=== PATIENT | female | born 1950 | race Caucasian/White ===

== ENCOUNTER 2021-02-13 21:15 | Observation (INO) | payer MEDICARE ==
[2021-02-13] MEDS ORDERED: Nitroglycerin 0.4 MG TAB (25 Tab Bottle) SL PRN (23:13)
[2021-02-13] MEDS ORDERED: Nitroglycerin 2% Ointment 1 INCH/1 GM Packet TOP SCH (23:30)
[2021-02-13] MEDS ORDERED: Amlodipine 5 MG TAB PO SCH (23:30)
[2021-02-13 23:51] LABS: #Eosinphils 0.2 10x3/uL (0.0-0.5); #Monocytes 0.5 10x3/uL (0.0-1.1); #Neutrophils 2.5 10x3/uL (1.5-8.4); %Basophils 0.5 % (0.0-2.0); %Lymphocytes 50.1 % (18.0-47.0); %Monocytes 7.3 % (0.0-10.0); %Neutrophils 38.8 % (40.0-75.0); Hemoglobin 11.9 g/dL (12.0-15.5); Mean Corpuscular HGB CONC 32.8 g/dL (32.0-36.0); Mean Corpuscular Hemoglobin 28.5 pg (27.0-33.0); Mean Corpuscular Volume 87.1 fl (81.6-98.3); Mean Platelet Volume 10.2 fl (7.4-10.4); Platelet Count 191 10x3/uL (150-450); RBC Distribution Width 13.2 % (11.5-14.5); Red Blood Cell (RBC) Count 4.17 10x6/uL (3.90-5.03); White Blood Cell (WBC) Count 6.3 10x3/uL (3.5-10.5)
[2021-02-13 23:58] LABS: Anion Gap 13 mmol/L (10-20); BUN (Urea Nitrogen) 16 mg/dL (9.8-20.1); Calc. Creatinine Clearance 0 mL/min (70-130); Calcium 9.1 mg/dL (7.8-10.44); Carbon Dioxide 26 mmol/L (23-31); Chloride 106 mmol/L (98-107); Glucose 99 mg/dL (80-115); Potassium 3.8 mmol/L (3.5-5.1); Sodium 141 mmol/L (136-145)
[2021-02-14 00:02] LABS: Troponin I 0.011 ng/mL (< 0.028)
[2021-02-14] MEDS ORDERED: Melatonin 3 MG TAB PO SCH (00:45)
[2021-02-14 04:45] LABS: #Eosinphils 0.2 10x3/uL (0.0-0.5); #Monocytes 0.5 10x3/uL (0.0-1.1); #Neutrophils 2.9 10x3/uL (1.5-8.4); %Basophils 0.4 % (0.0-2.0); %Eosinophils 3.4 % (0.0-6.0); %Monocytes 7.3 % (0.0-10.0); %Neutrophils 42.8 % (40.0-75.0); Hemoglobin 11.7 g/dL (12.0-15.5); Mean Corpuscular HGB CONC 33.3 g/dL (32.0-36.0); Mean Corpuscular Hemoglobin 28.5 pg (27.0-33.0); Mean Corpuscular Volume 85.4 fl (81.6-98.3); Mean Platelet Volume 10.4 fl (7.4-10.4); Platelet Count 185 10x3/uL (150-450); RBC Distribution Width 13.1 % (11.5-14.5); Red Blood Cell (RBC) Count 4.11 10x6/uL (3.90-5.03); White Blood Cell (WBC) Count 6.7 10x3/uL (3.5-10.5)
[2021-02-14 05:10] LABS: Troponin I Less than 0.010 ng/mL (< 0.028)
[2021-02-14 05:13] LABS: Anion Gap 13 mmol/L (10-20); BUN (Urea Nitrogen) 16 mg/dL (9.8-20.1); Calc. Creatinine Clearance 0 mL/min (70-130); Calcium 8.8 mg/dL (7.8-10.44); Carbon Dioxide 24 mmol/L (23-31); Cardiac Risk 2.5 (Less than 4.5); Chloride 109 mmol/L (98-107); Cholesterol 170 mg/dl (< 200 Desired); Glucose 104 mg/dL (80-115); HDL Cholesterol 68 mg/dL (>60 Neg Risk); LDL Cholesterol, Calculated 83 mg/dL; Potassium 3.5 mmol/L (3.5-5.1); Sodium 142 mmol/L (136-145); Triglycerides 94 mg/dL (Less than 150)
[2021-02-14] MEDS ORDERED: Nitroglycerin 2% Ointment 1 INCH/1 GM Packet TOP SCH (06:00)
[2021-02-14] MEDS ORDERED: Fish Oil 1,000 MG CAP PO SCH (09:00)
[2021-02-14] MEDS ORDERED: Loratadine 10 MG TAB PO SCH (09:00)
[2021-02-14] MEDS ORDERED: Escitalopram Oxalate 10 mg Tablet PO SCH (09:00)
[2021-02-14] MEDS ORDERED: Cholecalciferol 1,000 UNITS (25 MCG) TAB PO SCH (09:00)
[2021-02-14] MEDS ORDERED: Ubidecarenone 50 MG CAP PO SCH (09:00)
[2021-02-14] MEDS ORDERED: Amlodipine 5 MG TAB PO SCH ×2 (09:00→10:30)
[2021-02-14] MEDS ORDERED: Propranolol 10 MG TAB PO SCH (09:00)
[2021-02-14] MEDS ORDERED: Aspirin 81 mg Enteric Coated Tablet PO SCH (09:00)
[2021-02-14] MEDS ORDERED: Multivit, Therapeutic 1 TAB PO SCH (09:00)
[2021-02-14] MEDS ORDERED: Enoxaparin Sodium 40 MG/0.4 ML SYRINGE SC SCH (09:00)
[2021-02-14 12:53] VITALS: BP 158/85; TEMP 98.5
[2021-02-14 16:44] LABS: SARS-CoV-2 PCR by NAA Not Detected (NotDetected)
[2021-02-15] MEDS ORDERED: Amlodipine 5 MG TAB PO SCH (09:00)
== END 2021-02-14 14:24 | disposition home or self-care (01) ==
LOC: UNDOADMOB 21:15 → CSHTELE 21:15
PROVIDERS: ADMIT Family Medicine; ATTEND Hospitalist
DX: R07.9 Chest pain, unspecified (principal); I10 Essential (primary) hypertension; K44.9 Diaphragmatic hernia without obstruction or gangrene; E78.5 Hyperlipidemia, unspecified; Z98.890 Other specified postprocedural states; G25.0 Essential tremor; Z79.899 Other long term (current) drug therapy; Z79.82 Long term (current) use of aspirin; Z90.49 Acquired absence of other specified parts of digestive tract; Z90.710 Acquired absence of both cervix and uterus; Z20.822 Contact with and (suspected) exposure to COVID-19
CPT/HCPCS: 80048 ×2; 80061; 84484 ×2; 85025 ×2; 93005; 96372; G0378 ×2; U0003; U0005; 36415; 87635; 93010; J1650